=== PATIENT | female | born 1960 | race Caucasian/White ===

== ENCOUNTER 2018-01-27 01:55 | Emergency (ER) | payer OTHER ==
[2018-01-27] MEDS ORDERED: ONDANSETRON 4 MG/2 ML VIAL IVP STA (02:35)
[2018-01-27] MEDS ORDERED: SODIUM CHLORIDE 0.9% 1,000 ML IV STA (02:35)
[2018-01-27 02:58] LABS: BASOPHILS % (AUTO) 0.3 %; EOSINOPHILS # (AUTO) 0.1 10^3/uL (0.0-0.7); EOSINOPHILS % (AUTO) 0.6 %; HGB - HEMOGLOBIN 14.1 g/dL (12.0-16.0); LYMPHOCYTES # (AUTO) 0.5 10^3/uL (1.5-3.5); LYMPHOCYTES % (AUTO) 5.9 %; MEAN CORPUSCULAR HGB CONC 33.1 g/dL (32.0-36.0); MEAN CORPUSCULAR VOLUME 93.6 fL (81.0-99.0); MEAN PLATELET VOLUME 7.5 fL (7.9-10.8); MONOCYTES # (AUTO) 0.5 10^3/uL (0.0-1.0); MONOCYTES % (AUTO) 5.5 %; NEUTROPHILS # (AUTO) 7.9 10^3/uL (1.5-6.6); NEUTROPHILS % (AUTO) 87.7 %; PLT - PLATELET COUNT 195 10^3/uL (130-450); RED BLOOD COUNT 4.56 10^6/uL (4.20-5.40); RED CELL DISTRIBUTION WIDTH 13.5 % (12.0-15.0); WHITE BLOOD COUNT 9.1 x10^3/uL (4.8-10.8)
[2018-01-27 03:11] LABS: ALBUMIN/GLOBULIN RATIO 1.1 (1.0-2.2); BILIRUBIN,TOTAL 0.9 mg/dL (0.2-1.0); CALCIUM 9.4 mg/dL (8.5-10.3); TOTAL PROTEIN 7.6 g/dL (6.7-8.2)
--- NOTE | 2018-01-27 04:19 | ED Physician Documentation ---
PD HPI ABD PAIN - Stated complaint Stated Complaint: ABDOMINAL PAIN,NAUSEA,VOMITING - Chief complaint Chief Complaint: Abd Pain - History obtained from History obtained from: Patient - History of Present Illness Timing - onset: Enter time (23:00), Today Timing - details: Abrupt onset Pain level max: 8 Pain level now: 0 Quality: Cramping Location: All over / everywhere (predominantly across upper abdomen) Radiation: Other (no radiation) Improved by: Other (no ameliorating factors) Worsened by: Position, Palpation Associated symptoms: Nausea, Vomiting, Diarrhea. No: Fever Similar symptoms before: Has not had sx before Recently seen: Not recently seen - Additional information Additional information: c/o sudden onset nausea, vomiting, diarrhea, and abdominal cramping 11 pm. Symptom onset seemed to correlate with consumption of mussels for dinner. Review of Systems Constitutional: denies: Fever, Chills, Sweats Cardiac: reports: Reviewed and negative Respiratory: reports: Reviewed and negative GI: reports: Abdominal Pain, Nausea, Vomiting, Diarrhea : denies: Dysuria, Frequency PD PAST MEDICAL HISTORY - Past Medical History Past Medical History: No - Past Surgical History Past Surgical History: No - Allergies Allergies/Adverse Reactions: Allergies Allergy/AdvReac Type Severity Reaction Status Date / Time No Known Drug Allergies Allergy Verified 01/27/18 02:07 - Social History Does the pt smoke?: No Smoking Status: Never smoker PD ED PE NORMAL - Vitals Vital signs reviewed: Yes - General General: Alert and oriented X 3, No acute distress, Well developed/nourished - HEENT HEENT: Moist mucous membranes - Cardiac Cardiac: RRR, No murmur - Respiratory Respiratory: No respiratory distress, Clear bilaterally - Abdomen Abdomen: Normal bowel sounds, Soft, Non tender, Non distended - Back Back: No CVA TTP - Derm Derm: Normal color Results - Vitals Vitals: Vital Signs - 24 hr 01/27/18 01/27/18 02:06 04:43 Temperature 36.1 C L Heart Rate 98 84 Respiratory 17 16 Rate Blood Pressure 122/81 H 126/82 H O2 Saturation 96 99 Oxygen O2 Source Room air - Labs Labs: Laboratory Tests 01/27/18 01/27/18 02:45 02:45 WBC 9.1 RBC 4.56 Hgb 14.1 Hct 42.7 MCV 93.6 MCH 31.0 MCHC 33.1 RDW 13.5 Plt Count 195 MPV 7.5 L Neut # (Auto) 7.9 H Lymph # (Auto) 0.5 L [place] # (Auto) 0.5 Eos # (Auto) 0.1 Baso # (Auto) 0.0 Absolute Nucleated RBC 0.00 Nucleated RBC % 0.0 Sodium 137 Potassium 3.6 Chloride 102 Carbon Dioxide 24 Anion Gap 11.0 BUN 26 H Creatinine 1.0 Estimated GFR (MDRD) 57 L Glucose 134 H Calcium 9.4 Total Bilirubin 0.9 AST 28 ALT 32 Alkaline Phosphatase 77 Total Protein 7.6 Albumin 4.0 Globulin 3.6 Albumin/Globulin Ratio 1.1 Lipase 51 PD MEDICAL DECISION MAKING - ED course Complexity details: reviewed results, re-evaluated patient, considered differential, d/w patient ED course: After IV fluids and IV zofran, patient reports resolution of symptoms. I offered to write rx for zofran, but she says she already has this (prescribed when she had cholecystectomy in the past). She did try zofran [employer], and as this did not seem to work, as also offered to write an alternative antinauseant ( such as phenergan or reglan). She declines this and says she feels the symptoms , having resolved, will likely be controlled with the zofran she already has - Sepsis Event Vital Signs: Vital Signs - 24 hr 01/27/18 01/27/18 02:06 04:43 Temperature 36.1 C L Heart Rate 98 84 Respiratory 17 16 Rate Blood Pressure 122/81 H 126/82 H O2 Saturation 96 99 Oxygen O2 Source Room air Departure - Departure Disposition: 01 Home, Self Care Clinical Impression: Vomiting and diarrhea Condition: Good Instructions: ED Diet Vomiting Diarrhea, ED Vomiting Diarrhea Nonspecific Ad Follow-Up: Valentina Kothari MD [Primary Care Provider] - Discharge Date/Time: 01/27/18 04:43
[2018-01-27 04:44] VITALS: BP 126/82
== END 2018-01-27 04:43 | disposition home or self-care (01) ==
LOC: ED 01:55
DX: R11.10 Vomiting, unspecified (principal); R19.7 Diarrhea, unspecified
CPT/HCPCS: 36415; 80053; 83690; 85025; 96361; 96374; 99283; 99284